=== PATIENT | female | born 1955 | race Caucasian/White ===

== ENCOUNTER 2023-08-10 11:53 | Emergency (ER) | payer MEDICARE, SELFPAY ==
[2023-08-10] VITALS (69 sets, daily range): BP systolic 71–141; BP diastolic 50–87; PULSE 58–106; RESP 12–31; TEMP 36.7–37.4; O2SAT 89–100
--- NOTE | ~2023-08-10 | CT_ITS ---
EXAMINATION: CT abdomen pelvis w con DATE: 08/10/2023 14:04 INDICATION: Abdominal pain and bright red blood per rectum TECHNIQUE: Computed tomography (CT) of the abdomen and pelvis was performed with 100 mL Omnipaque-350 intravenous contrast. Automated exposure control and iterative reconstruction technique were employe d. The dose-length product was 1166.46 mGy-cm. COMPARISON: None. FINDINGS: Lower thorax: Small pericardial effusion. Coronary artery calcification. Liver: 9 mm indeterminate right lobe hypodensity. Biliary/Gallbladder: Gallbladder is absent. Intrahepatic and moderate extrahepatic bile duct dilation . Pancreas: No mass or duct dilation. Spleen: Normal. Adrenals:No mass. Kidneys: No suspicious mass, obstructing stone, or hydronephrosis. 5 mm right mid pole hypodensity to o small to characterize but statistically most likely represents a cyst. GI tract: Mild distal esophageal and gastric wall edema. Several loops of dilated distal small bowel, likely ileus, noting that obstruction is not excluded. The rectum is markedly dilated to 9.3 cm, wit h inconsistent wall enhancement, pneumatosis, and significant surrounding inflammatory change. Append ix not visualized. Mesentery/Peritoneum: No free air. Multiple enlarged mesenteric lymph nodes. Retroperitoneum: No mass. Atherosclerotic abdominal aortic and/or arterial calcifications. Pelvis: Small volume, fluid density free pelvic fluid. Absent uterus. Normal urinary bladder.. Soft Tissues: Soft tissues and body wall unremarkable. Bones: No acute osseous finding. IMPRESSION: Stercoral colitis, from the severe fecal impaction, with likely bowel wall necrosis and current or im minent perforation. Mild esophagitis/gastritis. Intra and extrahepatic bile duct dilation, probably secondary to cholecystectomy, but recommend corre lation with right upper quadrant pain and biliary labs. Indeterminate density subcentimeter right liver lobe mass, requires no follow-up unless the patient i s at high risk, in which case consider follow-up MRI in 3-6 months. Mesenteric lymphadenopathy. Reviewed, dictated and finalized at location [facility]. IMPRESSION: Stercoral colitis, from the severe fecal impaction, with likely bowel wall necr osis and current or imminent perforation. Mild esophagitis/gastritis. Intra and extrahepatic bile duct dilation, probably secondary to cholecystectom y, but recommend correlation with right upper quadrant pain and biliary labs. Indeterminate density subcentimeter right liver lobe mass, requires no follow-u p unless the patient is at high risk, in which case consider follow-up MRI in 3 -6 months. Mesenteric lymphadenopathy.
[2023-08-10 12:43] LABS: Hemoglobin 11.6 g/dL (12.0-15.0); Mean Corpuscular HGB Conc 32.2 g/dl (32-36); Mean Corpuscular Hemoglobin 29.1 pg (26-34); Mean Corpuscular Volume 90.2 fl (80-100); Mean Platelet Volume 9.3 fl (7.4-10.4); Platelet Count Result 340 k/mm3 (150-375); Red Blood Count 3.99 M/mm3 (4.2-5.4); Red Cell Distribution Width 13.1 % (11.5-14.5); White Blood Count 19.5 K/mm3 (4.5-10.0)
[2023-08-10 12:55] LABS: Alanine Aminotransferase 32 U/L (6-35); Albumin Level 3.7 g/dL (3.5-5.1); Alkaline Phosphatase 86 U/L (38-126); Anion Gap 8 mmol/L (8-16); Aspartate Amino Transferase 34 U/L (14-36); Bilirubin,Total 0.8 mg/dL (0.2-1.3); Blood Urea Nitrogen 17 mg/dL (7-17); Calcium 8.5 mg/dL (8.4-10.2); Carbon Dioxide 25 mmol/L (22-30); Chloride 101 mmol/L (98-107); Estimated Glomerular Filt Rate > 60; Glucose 145 mg/dL (65-110); INR 1.2; Potassium 3.9 mmol/L (3.4-5.0); Prothrombin Time 15.7 Seconds (11.1-14.7); Sodium 134 mmol/L (137-145)
[2023-08-10 12:56] LABS: Partial Thromboplastin Time 28.6 SECONDS (22.3-36.8)
--- NOTE | 2023-08-10 12:56 | ED.GENADULT ---
HPI - General Adult General Chief complaint: GI Bleed Stated complaint: abd pain/gi bleed Time Seen by Provider: 08/10/23 12:01 History of Present Illness HPI narrative: 67-year-old female to the emergency department for evaluation of bright red blood per rectum. Patient has history of of IBS. Patient also reports possible history of hemorrhoids. Over night patient had 4-5 bloody bowel movements. Patient also describes diffuse abdominal pain. Patient does have a longstanding history of constipation but has been acutely constipated over the last week. Patient does have prior history of cholecystectomy, hysterectomy and appendectomy. Patient is visiting family locally and is from [place]. Related Data Allergies Allergy/AdvReac Type Severity Reaction Status Date / Time codeine Allergy Unknown Verified 08/10/23 11:55 latex Allergy Swelling Verified 08/10/23 11:55 of Lip/Tongue/Throat Sulfa (Sulfonamide Allergy Other Verified 08/10/23 15:25 Antibiotics) Review of Systems Review of Systems: All systems reviewed & are unremarkable except as noted in HPI and below Exam Narrative: APPEARANCE: Well appearing, no pain, no distress, well-nourished. HEAD: normocephalic, atraumatic. EYES: PERRLA/EOMI, conjunctivae clear. NOSE: Normal no drainage NECK: Supple. No adenopathy, no masses. RESPIRATORY: Airway patent, respirations nonlabored. Clear to auscultation bilaterally, no rales, rhonchi, wheezing. CARDIOVASCULAR: Regular rate and rhythm without murmurs rubs or gallops. ABDOMINAL: Diffusely tender abdomen with decreased bowel sounds MUSCULOSKELETAL: Moves all extremities. Strength/ROM intact, No edema, No calf tenderness. NEURO: Alert. Cranial nerves II through XII intact. Grossly intact SKIN: Warm, dry. Normal Color Course Course Emergency Course: 67-year-old female presented ED for evaluation of rectal bleeding. Patient was afebrile but does have a leukocytosis of 19.5 and a hemoglobin of 11.6. Patient did have some systolic blood pressures in the 80s and was treated with 2 L of IV fluids. Lactic acid was normal. CT scan showed evidence of stercoral colitis with possible perforation. Blood cultures were ordered and patient was started on Zosyn. Repeat H&H showed a hemoglobin of 9.2. Discussed case with general surgery and they recommend transfer to [facility] or [place] for colorectal surgery. Patient and family are updated on the results of the work-up and plan for transfer. [facility] states that [facility] are at capacity and cannot accept the patient. I discussed case with [facility] and patient was accepted for transfer. Patient was transferred by flight. Prior to transfer patient did receive 3 L of normal saline, IV Zosyn and 2 units of packed red blood cells. Vital Signs Vital signs: Vital Signs Pulse Rate 68 08/10/23 11:56 Respiratory Rate 22 H 08/10/23 11:56 Blood Pressure 115/76 08/10/23 11:56 Pulse Oximetry 99 08/10/23 11:56 Oxygen Delivery Room Air 08/10/23 11:56 Temperature 98.4 F 08/10/23 17:28 Pulse Rate 97 08/10/23 18:02 Respiratory Rate 22 H 08/10/23 18:02 Blood Pressure 89/64 L 08/10/23 18:00 Pulse Oximetry 98 08/10/23 18:02 Oxygen Delivery Room Air 08/10/23 11:56 Medical Decision Making Differential Diagnosis Differential Diagnosis: Colitis, diverticulitis, small bowel obstruction, bowel perforation, constipation, bleeding hemorrhoid Vital Signs Vital Signs: Vital Signs Pulse Rate 68 08/10/23 11:56 Respiratory Rate 22 H 08/10/23 11:56 Blood Pressure 115/76 08/10/23 11:56 Pulse Oximetry 99 08/10/23 11:56 Oxygen Delivery Room Air 08/10/23 11:56 Temperature 98.4 F 08/10/23 17:28 Pulse Rate 97 08/10/23 18:02 Respiratory Rate 22 H 08/10/23 18:02 Blood Pressure 89/64 L 08/10/23 18:00 Pulse Oximetry 98 08/10/23 18:02 Oxygen Delivery Room Air 08/10/23 11:56 Lab Data Lab results reviewed: Yes I reviewed the pat
[2023-08-10 13:01] LABS: Band Neutrophils Percent 11 % (0-6); Lymphocytes Absolute Manual 0.97 K/mm3 (1.1-4.5); Monocytes Absolute Manual 0.78 K/mm3 (0.1-0.90); Monocytes Percent Manual 4 % (3-9); Neutrophils Absolute Manual 17.74 K/mm3 (1.7-7.2); Neutrophils Percent Manual 80 % (46-73); Platelet Estimate Adequate (Adequate); Schistocytes None Seen (NORMAL); Total Cells Counted 100
[2023-08-10] MEDS: SODIUM CHLORIDE 0.9% IV 1,000 ML 999 ML IV CONT ×4 (13:05→16:29)
--- NOTE | 2023-08-10 13:50 | PC.NURSE ---
Dilaudid held initially due to BP of 80s systolic. NS IVF bolus initiated as ordered with improvement in BP. Verbal order to give Dilaudid received.
--- NOTE | 2023-08-10 13:52 | PC.NURSE ---
Patient off unit to CT.
[2023-08-10] MEDS: HYDROmorphone HCL INJ (*CRX) 1 MG/ML SYR 0.5 MG IV PUSH (14:15)
[2023-08-10 15:23] LABS: Lactic Acid Reflex 1.5 mmol/L (0.7-2.0)
[2023-08-10 15:24] LABS: Hematocrit 29.6 % (37.0-47.0); Hemoglobin 9.2 g/dL (12.0-15.0)
[2023-08-10] MEDS: PIPERACILLN/TAZ 3.375GM/NS50ML 3.375 GM/50 ML BAG IVPB (15:26)
[2023-08-10] MEDS: SODIUM CHLORIDE 0.9% IV 250 ML 30 ML IV CONT (16:29)
[2023-08-10] MEDS: TUBING, BLOOD PLUM PUMP TUBING 1 EACH XX (16:29)
[2023-08-10] MEDS: ONDANSETRON INJ 4 MG/2 ML VIAL IV PUSH (16:57)
[2023-08-10] MEDS: PANTOPRAZOLE SODIUM IV 40 MG VIAL IV PUSH (18:43)
--- NOTE | 2023-08-10 19:00 | PC.NURSE ---
Patient transferred with first unit of PRBCs infusing and second unit sent with Air Evac RN for administration en route.
== END 2023-08-10 18:52 | disposition short-term general hospital (02) ==
PROVIDERS: Emergency Provider Emergency Medicine
DX: K52.89 Other specified noninfective gastroenteritis and colitis (principal); K62.5 Hemorrhage of anus and rectum; K56.41 Fecal impaction; K58.1 Irritable bowel syndrome with constipation
CPT/HCPCS: 36415; 36430; 74177; 80053; 83605; 85014; 85018; 85025; 85610; 85730; 86850; 86900; 86901; 86923; 87040; 96361; 96365; 96375; 99285; C9113; J1170; J2405; J2543; J7030; J7050; P9016; Q9967